=== PATIENT | male | born 1960 | race Caucasian/White ===

== ENCOUNTER 2018-01-29 06:50 | Day surgery (SDC) | payer MEDICARE ==
[2018-01-29] MEDS ORDERED: Ringers Lactate 1,000 ML IV ONE (07:28)
[2018-01-29] MEDS ORDERED: LIDOCAINE 4% TOP SOLUTION ONE (07:34)
[2018-01-29] MEDS ORDERED: Phenylephrine HCl 10 MG/ML 1 ML VIAL ONE (07:34)
[2018-01-29] MEDS ORDERED: GLYCOPYRROLATE 0.2 MG/ML SYR ONE (07:34)
[2018-01-29] MEDS ORDERED: LIDOCAINE 4% TOP SOLUTION TOP ONE (07:46)
[2018-01-29] MEDS ORDERED: MIDAZOLAM HCL 2 MG/2 ML INJ ONE ×2 (08:02→08:06)
[2018-01-29] MEDS ORDERED: PROPOFOL 200 MG/20 ML VIAL IV ONE (08:02)
[2018-01-29] MEDS ORDERED: LIDOCAINE 1% MPF 5 ML VIAL ONE (08:08)
--- NOTE | 2018-01-29 08:38 | P.OP ---
Date of Service: 01/29/18 (Bronchoscopy with right upper lobe transbronchial biopsies and a BAL) Findings and Operative Technique Patient is 57 years of age evaluated by me for a right upper lobe cavitary mass heavy smoker hence the reason for bronchoscopy Narrative report after obtaining informed consent from the patient he was premedicated by anesthesia Finding normal vocal cords normal trachea normal right and left-sided bronchial anatomy patient id copious amounts of mucus in his respiratory trach otherwise entirely normal bronchoscopy Multiple biopsies were obtained from the right upper lobe is indicated patient tolerated the procedure very well did not experience any hemodynamic problems biopsies sent for pathology and cytology
--- NOTE | 2018-01-29 10:05 | RAD REPORT ---
EXAM DESCRIPTION: RAD - Chest Single View - 01/29/2018 9:47 am CLINICAL HISTORY: Status post bronchoscopy Chest pain. COMPARISON: Chest Pa And Lat (2 Views) dated 01/20/2018; CHEST PA AND LAT 2 VIEW dated 08/03/2012; JUANITA ST PA AND LAT 2 VIEW dated 07/13/2012; CHEST SINGLE VIEW dated 09/15/2009 FINDINGS: Portable technique limits examination quality. Again noted is right apical cavitary lung lesion. No postprocedure pneumothorax is seen. The heart is normal in size. No displaced fractures.Aortic atherosclerosis. IMPRESSION: No postprocedure pneumothorax.
--- NOTE | 2018-01-29 10:33 | RAD REPORT ---
EXAM DESCRIPTION: RAD - FLUORO-GUIDE FOR BRONCH UPT1HR - 01/29/2018 8:52 am CLINICAL HISTORY: BRONCH- RIGHT LUNG BIOPSY COMPARISON: No comparisons FINDINGS: Fluoroscopic imaging is submitted from right-sided bronchoscopy procedure. Details of the procedure not available. Total fluoro time 3 minutes 22 seconds. Three spot images were obtained.
== END 2018-01-29 10:28 | disposition home health service (06) ==
LOC: OR 06:50
PROVIDERS: ATTEND Internal Medicine Sleep Medicine
PROC: 0B9C8ZX Drainage of Right Upper Lung Lobe, Via Natural or Artificial Opening Endoscopic, Diagnostic (ICD-10-PCS; 2018-01-29)
PROC: 0BBC8ZX Excision of Right Upper Lung Lobe, Via Natural or Artificial Opening Endoscopic, Diagnostic (ICD-10-PCS; principal; 2018-01-29 08:00)
DX: R91.8 Other nonspecific abnormal finding of lung field (principal); J44.9 Chronic obstructive pulmonary disease, unspecified; Z72.0 Tobacco use
CPT/HCPCS: 31624; 31628; 71045; 76000; 87015; 87102; 87116; 87206; 88108; 88305; J2250 ×2; J2370

== ENCOUNTER 2018-07-10 07:13 | Emergency (ER) | payer MEDICARE, SELFPAY ==
[2018-07-10] MEDS ORDERED: MORPHINE 4 MG/ML SYR ONE (07:44)
[2018-07-10] MEDS ORDERED: ONDANSETRON 4 MG/2 ML VIAL ONE (07:44)
[2018-07-10 08:02] LABS: Absolute Lymphocytes (CBC) 1.1 K/uL (0.7-4.9); Absolute Monocytes 0.4 K/uL (0.1-1.3); Absolute Neutrophil 7.6 K/uL (1.8-8.0); Basophils % 0.7 % (0-1.3); Eosinophils % 1.8 % (0-4.4); Hematocrit 33.4 % (39.6-49.0); Lymphocytes % 11.8 % (15.3-44.8); MPV 8.9 fL (7.6-11.3); Monocytes % 4.5 % (3.3-12.3); RBC Red Blood Cell Count 3.45 M/uL (4.33-5.43)
[2018-07-10 08:18] LABS: ALT/SGPT 71 U/L (12-78); AST/SGOT 30 U/L (15-37); Albumin 3.8 g/dL (3.4-5.0); Alkaline Phosphatase 93 U/L (45-117); BUN Blood Urea Nitrogen 27 mg/dL (7-18); Bicarbonate 27 mmol/L (21-32); Bilirubin Direct < 0.1 mg/dL (0-0.2); Bilirubin Total 0.2 mg/dL (0.2-1.0); Glucose Level 124 mg/dL (74-106); Lipase 104 U/L (73-393); Potassium 4.2 mmol/L (3.5-5.1); Protein, Total 7.4 g/dL (6.4-8.2); Sodium Level 141 mmol/L (136-145)
--- NOTE | 2018-07-10 08:34 | ER ---
Nurse's Notes [facility] Name: Dimitrios Payan Age: 57 yrs Sex: Male : 1960 Arrival Date: 07/10/2018 Time: 07:15 Bed 15 Private MD: Tom Ramirez E Diagnosis: Inguinal hernia Presentation: 07/10 07:25 Presenting complaint: Patient states: right inguinal hernia that "popped out" this iw morning. Transition of care: patient was not received from another setting of care. Onset of symptoms was July 10, 2018. Risk Assessment: Do you want to hurt yourself or someone else? Patient reports no desire to harm self or others. Initial Sepsis Screen: Does the patient meet any 2 criteria? No. Patient's initial sepsis screen is negative. Does the patient have a suspected source of infection? No. Patient's initial sepsis screen is negative. Care prior to arrival: None. 07:25 Method Of Arrival: Ambulatory iw 07:25 Acuity: SUSSY 3 iw Historical: - Allergies: 07:29 No Known Allergies; iw - Home Meds: 07:29 Suboxone sublingual sublingual [Active]; diclofenac oral oral [Active]; citalopram oral iw [Active]; - PMHx: 07:29 Anxiety; iw - PSHx: 07:29 None; iw - Immunization history:: Adult Immunizations not up to date. - Social history:: Smoking status: Patient uses tobacco products. - Ebola Screening: : Patient negative for fever greater than or equal to 101.5 degrees Fahrenheit, and additional compatible Ebola Virus Disease symptoms Patient denies exposure to infectious person Patient denies travel to an Ebola-affected area in the 21 days before illness onset No symptoms or risks identified at this time. Screenin:26 Abuse screen: Denies threats or abuse. Denies injuries from another. Nutritional bp screening: No deficits noted. Tuberculosis screening: No symptoms or risk factors identified. Fall Risk None identified. Assessment: 07:24 General: Appears in no apparent distress. uncomfortable, Behavior is cooperative, bp appropriate for age, anxious. Pain: Complains of pain in right inguinal area. Neuro: Level of Consciousness is awake, alert, obeys commands, Oriented to person, place, time, situation, Appropriate for age. Cardiovascular: No deficits noted. Respiratory: Airway is patent Respiratory effort is even, unlabored, Respiratory pattern is regular, symmetrical. GI: R INGUINAL HERNIA. : No signs and/or symptoms were reported regarding the genitourinary system. EENT: No deficits noted. Derm: No deficits noted. Musculoskeletal: Circulation, motion, and sensation intact. Range of motion: intact in all extremities. 08:52 Reassessment: PT DECLINING CT SCAN, PROVIDER AWARE. PT D/C HOME AMBULATORY WITH FAMILY, bp DX WITH INGUINAL HERNIA. Vital Signs: 07:27 BP 171 / 87; Pulse 84; Resp 16; Pulse Ox 99% on R/A; Weight 74.84 kg; Height 5 ft. 10 iw in. (177.80 cm); Pain 10/10; 07:48 BP 149 / 88; Pulse 78; Resp 14; Pulse Ox 99% ; bp 08:53 BP 130 / 73; Pulse 77; Resp 14; Pulse Ox 99% ; bp 07:27 Body Mass Index 23.67 (74.84 kg, 177.80 cm) iw ED Course: 07:15 Patient arrived in ED. mr 07:16 Tom Ramirez MD is Private Physician. mr 07:19 Nirmal Esteves MD is Attending Physician. ps1 07:23 Cail Onofre, RN is Primary Nurse. bp 07:26 Triage completed. iw 07:26 Patient has correct armband on for positive identification. Placed in gown. Bed in low bp position. Call light in reach. Side rails up X2. Adult w/ patient. 07:27 Arm band placed on. iw 07:33 Radiology exam delayed due to lab results not completed at this time. (BUN/Creatinine). vm2 07:45 Inserted saline lock: 18 gauge in right forearm, using aseptic technique. Blood bp collected. 08:33 Jorge L Elias MD is Referral Physician. ps1 08:52 No provider procedures requiring assistance completed. IV discontinued, intact, bp bleeding controlled, No redness/swelling at site. Pressure dressing applied. Administered Medications: 07:45 Drug: morphine 4 mg Route: IVP; Site: right forearm; bp 08:51 Follow up: Response: Pain is decreased bp 07:45 Drug: Zofran 4 mg Route: IVP; Site: right forearm; bp 08:51 Follow up: Response: No adverse reaction bp Outcome: 08:34 Discharge ordered by . ps1 08:53 Discharged to home ambulatory, with family. bp 08:53 Condition: stable 08:53 Discharge instructions given to patient, Instructed on discharge instructions, follow up and referral plans. Demonstrated understanding of instructions, follow-up care. 08:54 Patient left the ED. bp Signatures: Carmina Levine Irene, RN RN iw Lisandra Godfrey 2 Cali Onofre RN RN bp Nirmal Esteves MD MD ps1 Corrections: (The following items were deleted from the chart) 07:29 07:25 Acuity: SUSSY 4 grace edwards
--- NOTE | 2018-07-10 08:35 | EDPHYS ---
Physician Documentation [facility] Name: Dimitrios Payan Age: 57 yrs Sex: Male : 1960 Arrival Date: 07/10/2018 Time: 07:15 Bed 15 Private MD: Tom Ramirez E ED Physician Nirmal Esteves HPI: 07/10 07:21 This 57 yrs old Male presents to ER via Unassigned with complaints of Hernia. ps1 07:21 patient states that he has a hernia in the right groin. This morning about 230 feels ps1 like it is hard and non-reducible. Rates pain as moderate and worse with palpation. Thinks there may be gas in there that's causing pain. No remitting factors. . Historical: - Allergies: 07:29 No Known Allergies; iw - Home Meds: 07:29 Suboxone sublingual sublingual [Active]; diclofenac oral oral [Active]; citalopram oral iw [Active]; - PMHx: 07:29 Anxiety; iw - PSHx: 07:29 None; iw - Immunization history:: Adult Immunizations not up to date. - Social history:: Smoking status: Patient uses tobacco products. - Ebola Screening: : Patient negative for fever greater than or equal to 101.5 degrees Fahrenheit, and additional compatible Ebola Virus Disease symptoms Patient denies exposure to infectious person Patient denies travel to an Ebola-affected area in the 21 days before illness onset No symptoms or risks identified at this time. ROS: 07:21 Constitutional: Negative for fever, chills, and weight loss, Eyes: Negative for injury, ps1 pain, redness, and discharge, Cardiovascular: Negative for chest pain, palpitations, and edema, Respiratory: Negative for shortness of breath, cough, wheezing, and pleuritic chest pain, Back: Negative for injury and pain, MS/Extremity: Negative for injury and deformity, Skin: Negative for injury, rash, and discoloration, Neuro: Negative for headache, weakness, numbness, tingling, and seizure. 07:21 Abdomen/GI: Positive for hernia in right groin. Exam: 07:21 Constitutional: This is a well developed, well nourished patient who is awake, alert, ps1 and in no acute distress. Head/Face: Normocephalic, atraumatic. Eyes: Pupils equal round and reactive to light, extra-ocular motions intact. Lids and lashes normal. Conjunctiva and sclera are non-icteric and not injected. Chest/axilla: Normal chest wall appearance and motion. Nontender with no deformity. No lesions are appreciated. Cardiovascular: Regular rate and rhythm. No gallops, murmurs, or rubs. Normal PMI, no JVD. No pulse deficits. Respiratory: Lungs have equal breath sounds bilaterally, clear to auscultation and percussion. No rales, rhonchi or wheezes noted. No increased work of breathing, no retractions or nasal flaring. Back: No spinal tenderness. No costovertebral tenderness. Full range of motion. Skin: Warm, dry with normal turgor. Normal color with no rashes, no lesions, and no evidence of cellulitis. MS/ Extremity: Pulses equal, no cyanosis. Neurovascular intact. Full, normal range of motion. Neuro: Awake and alert, GCS 15, oriented to person, place, time, and situation. Cranial nerves II-XII grossly intact. Sensory grossly intact. 07:21 Abdomen/GI: Inspection: abdomen appears normal, Bowel sounds: normal, Palpation: moderate abdominal tenderness, Hernia: noted in the right inguinal area. Vital Signs: 07:27 BP 171 / 87; Pulse 84; Resp 16; Pulse Ox 99% on R/A; Weight 74.84 kg; Height 5 ft. 10 iw in. (177.80 cm); Pain 10/10; 07:48 BP 149 / 88; Pulse 78; Resp 14; Pulse Ox 99% ; bp 08:53 BP 130 / 73; Pulse 77; Resp 14; Pulse Ox 99% ; bp 07:27 Body Mass Index 23.67 (74.84 kg, 177.80 cm) iw MDM: 07:26 Patient medically screened. ps1 08:29 Data reviewed: vital signs, nurses notes. ED course: placed patient in head down ps1 position and hernia spontaneously reduced. . 08:32 ED course: patient refusing CT scan now that it is reduced. Patient stable for ps1 discharge. . 07/10 07:29 Order name: CBC with Diff; Complete Time: 08:34 ps1 07/10 07:29 Order name: Creatinine for Radiology; Complete Time: 08:34 ps1 07/10 07:29 Order name: Hepatic Function; Complete Time: 08:34 ps1 07/10 07:29 Order name: Lipase; Complete Time: 08:34 ps1 07/10 07:29 Order name: CMP; Complete Time: 08:34 ps1 07/10 07:29 Order name: IV Saline Lock; Complete Time: 07:46 ps1 07/10 07:29 Order name: Labs collected and sent; Complete Time: 07:46 ps1 Administered Medications: 07:45 Drug: morphine 4 mg Route: IVP; Site: right forearm; bp 08:51 Follow up: Response: Pain is decreased bp 07:45 Drug: Zofran 4 mg Route: IVP; Site: right forearm; bp 08:51 Follow up: Response: No adverse reaction bp Disposition: 07/10/18 08:34 Discharged to Home. Impression: Inguinal hernia. - Condition is Stable. - Discharge Instructions: Inguinal Hernia, Adult. - Medication Reconciliation Form, Thank You Letter, Antibiotic Education, Prescription Opioid Use form. - Follow up: Jorge L Elias MD; When: As needed; Reason: Further diagnostic work-up, Recheck today's complaints, Re-evaluation by your physician. Follow up: Emergency Department; When: As needed; Reason: Worsening of condition. - Problem is an acute exacerbation. - Symptoms have improved. Signatures: Dispatcher [employer] [facility] Vero Red RN RN iw Cali Onofre RN RN Nirmal Orellana MD MD ps1 Corrections: (The following items were deleted from the chart) 08:53 07:30 Abdomen Pelvis W Con+CT.RAD.BRZ ordered. [facility] EDCT 08:54 08:34 07/10/2018 08:34 Discharged to Home. Impression: Inguinal hernia. Condition is bp Stable. Forms are Medication Reconciliation Form, Thank You Letter, Antibiotic Education, Prescription Opioid Use. Follow up: Dr. Jorge L Elias; When: As needed; Reason: Further diagnostic work-up, Recheck today's complaints, Re-evaluation by your physician. Follow up: Emergency Department; When: As needed; Reason: Worsening of condition. Problem is an acute exacerbation. Symptoms have improved. ps1
== END 2018-07-10 08:54 | disposition home or self-care (01) ==
LOC: ER 07:13
DX: K40.90 Unilateral inguinal hernia, without obstruction or gangrene, not specified as recurrent (principal); F41.9 Anxiety disorder, unspecified; Z79.899 Other long term (current) drug therapy; Z72.0 Tobacco use
CPT/HCPCS: 36415; 80053; 80076; 83690; 85025; 96374; 96375; 99283; J2405

== ENCOUNTER 2018-07-19 08:13 | Day surgery (SDC) | payer MEDICARE ==
[2018-07-19] MEDS ORDERED: Ringers Lactate 1,000 ML IV ONE (08:50)
[2018-07-19] MEDS ORDERED: CEFAZOLIN/SWI 1gm 1 GM/10 ML SYR ONE (08:50)
[2018-07-19] MEDS ORDERED: MIDAZOLAM HCL 2 MG/2 ML INJ ONE (08:51)
[2018-07-19] MEDS ORDERED: DEXAMETHASONE 10 MG/ML VIAL ONE (08:51)
[2018-07-19] MEDS ORDERED: PROPOFOL 200 MG/20 ML VIAL IV ONE (08:51)
[2018-07-19] MEDS ORDERED: ROCURONIUM 50 MG/5 ML VIAL IV ONE (08:52)
[2018-07-19] MEDS ORDERED: LIDOCAINE 2% MPF 5 ML VIAL ONE (08:52)
[2018-07-19] MEDS ORDERED: FENTANYL CITR 250 MCG/5 ML ONE (08:52)
[2018-07-19] MEDS ORDERED: BUPIVACAINE 0.5% PF 10 ML VIAL ONE (09:40)
[2018-07-19] MEDS ORDERED: KETOROLAC 30 MG/ML INJ ONE (10:45)
[2018-07-19] MEDS: HYDROMORPHONE HCL 2 MG/ML inj ONE ×4 (10:56→11:11)
[2018-07-19] MEDS: MEPERIDINE HCL 50 MG/ML AMP ONE ×2 (11:16→11:21)
[2018-07-19] MEDS: HYDROMORPHONE HCL 1 MG/ML INJ ONE ×2 (11:28→11:36)
[2018-07-19] MEDS ORDERED: HYDROCODONE/APAP 7.5/325 MG TAB ONE (12:26)
--- NOTE | 2018-07-19 21:44 | OP ---
Date of Procedure: 07/19/2018 Surgeon: Jorge L Elias MD Car Customizer: JUANCHO Mcdaniel. Preoperative Diagnosis: Bilateral inguinal hernia. Postoperative Diagnosis: Bilateral inguinal hernia. Procedure: Repair of bilateral inguinal hernia. Estimated Blood Loss: Minimal. Specimen: None. Findings: Bilateral direct inguinal hernia. Anesthesia: General. Complications: None. Disposition: The patient tolerated the procedure in stable condition and was taken to recovery in go od general condition. Description Of Procedure: The patient was brought to the OR and placed in supine position. General anesthesia was begun. The patient was prepped and draped in the usual sterile fashion. Marcaine 0.5 % was infiltrated in the right groin in a field block fashion. A 15-blade was used to make a 4-cm ob lique incision between the anterior iliac superior spine and the pubic tubercle. Subcutaneous tissue was divided. Tavares fascia was identified and divided. Aponeurosis was identified and mobilized in feriorly to expose the shelving edge, and then the aponeurosis was opened through the external ring. Ilioinguinal nerve was identified and retracted out of the field of dissection. Cord was mobilized and skeletonized. No indirect sac was present. Medial to that, there was a large direct defect. Th is was reapproximated starting at the pubic tubercle, to create a new internal ring by 2-0 Prolene by joining the shelving edge to the conjoined tendon. Then, Marlex mesh plug was placed in the interna l ring and secured with the VersaTack stapler. Onlay mesh was placed on the inguinal floor, secured medially to the pubic tubercle, inferiorly to the shelving edge, superiorly to the conjoined tendon, laterally to each other, and then cord structures. Ilioinguinal nerve was placed back in anatomical location. A 2-0 Prolene was used to close the aponeurosis, 3-0 chromic used to close the Tavares fasc ia, and henri used to close the skin. Then, sterile dressing was applied. On the other side, exac tly same operation occurred with the exact same findings. The defect was not as large on the left si de as was on the right side. Otherwise, the findings of repair were exactly the same. Subsequently, after both wounds were closed, the patient was awakened and taken to Recovery in good general condit ion. Discharge Note: The patient will go to Day Surgery and home when stable. Disposition: Home. Condition: Stable. Discharge Instructions: Resume home medications and diet. Activity as tolerated. No heavy lifting. Remove outer dressing in a.m. Shower. Keep wound clean and dry. Follow up in my office 1 week. Call for appointment. Tylenol No. 3, one tablet p.o. q.4 hours p.r.n. pain. Ice pack and scrotal teresa pport. /MODL Voice ID: [id number] Report ID: [id number]
== END 2018-07-19 12:40 | disposition home or self-care (01) ==
LOC: OR 08:13
PROVIDERS: ATTEND Surgery
PROC: 0YUA0JZ Supplement Bilateral Inguinal Region with Synthetic Substitute, Open Approach (ICD-10-PCS; principal; 2018-07-19 10:00)
DX: K40.20 Bilateral inguinal hernia, without obstruction or gangrene, not specified as recurrent (principal); J44.9 Chronic obstructive pulmonary disease, unspecified; F43.22 Adjustment disorder with anxiety; F17.210 Nicotine dependence, cigarettes, uncomplicated; Z79.51 Long term (current) use of inhaled steroids; Z79.899 Other long term (current) drug therapy
CPT/HCPCS: 49505; J0690; J1100; J1170 ×2; J2175; J2250; J2704; J3010

== ENCOUNTER 2019-05-19 09:50 | Emergency (ER) | payer MEDICARE, SELFPAY ==
--- NOTE | 2019-05-19 12:06 | ER ---
Nurse's Notes [facility] Name: Dimitrios Payan Age: 58 yrs Sex: Male : 1960 Arrival Date: 05/19/2019 Time: 09:52 Bed Waiting Private MD: Tom Yuen E Diagnosis: Presentation: 05/19 10:23 Presenting complaint: Patient states: i have this big abscess on my LEFT shoulder and tw2 its infected, i feel like i have a fever, i went to dr. yuen office and they put me on a real strong antibiotics, sulfamethoxasole, i just started em yesterday but i dont feel any better so they told me to come here. Presenting complaint: Patient states: they said i might need iv antibiotics. Transition of care: patient was not received from another setting of care. Onset of symptoms was May 19, 2019. Risk Assessment: Do you want to hurt yourself or someone else? Patient reports no desire to harm self or others. Initial Sepsis Screen: Does the patient meet any 2 criteria? No. Patient's initial sepsis screen is negative. Does the patient have a suspected source of infection? No. Patient's initial sepsis screen is negative. Care prior to arrival: None. 10:23 Method Of Arrival: Ambulatory tw2 10:23 Acuity: SUSSY 3 tw2 10:25 Presenting complaint: Patient states: i have been squeezing on it for 4 days and this tw2 last time i squeezed on it i knew i messed up. 12:01 Note pts name called 3 times from [facility] no answer at this time, loan secretary tells me he tw2 has been going to smoke outside but was not anywhere near entrance at this time. 12:04 Note pt called manager unit at this time states "i got tired of waiting, take me off tw2 that damn list". Triage Assessment: 10:25 General: Appears in no apparent distress. well groomed, Behavior is calm, cooperative, tw2 appropriate for age. Pain: Complains of pain in left shoulder. Historical: - Allergies: 10:28 No Known Allergies; tw2 - Home Meds: 10:28 Suboxone sublingual [Active]; diclofenac Oral [Active]; Flomax 0.4 mg Oral cp24 1 cap tw2 once daily [Active]; - PMHx: 10:28 Anxiety; tw2 - PSHx: 10:28 None; tw2 - Immunization history:: Adult Immunizations Last tetanus immunization: unknown. - Social history:: Smoking status: Patient uses tobacco products, vape with nicotine 18 mcg. - Ebola Screening: : Patient denies travel to an Ebola-affected area in the 21 days before illness onset. Screenin:11 Abuse screen: Denies threats or abuse. Nutritional screening: No deficits noted. tw2 Tuberculosis screening: No symptoms or risk factors identified. Fall Risk None identified. Vital Signs: 10:26 BP 123 / 70; Pulse 87; Resp 17; Temp 98.1(TE); Pulse Ox 100% on R/A; Weight 76.2 kg; tw2 Height 5 ft. 10 in. (177.80 cm) (R); Pain 5/10; 10:26 Body Mass Index 24.11 (76.20 kg, 177.80 cm) tw2 ED Course: 09:52 Patient arrived in ED. rg4 09:52 Tom Yuen MD is Private Physician. rg4 10:25 Triage completed. tw2 10:25 Arm band placed on. tw2 Administered Medications: No medications were administered Outcome: 12:05 Patient left the ED. tw2 Signatures: Mouna Agrawal RN RN tw2 Karen Millan rg4
[2019-05-19 12:19] VITALS: BP 123/70; TEMP 98.1; O2SAT 100
== END 2019-05-19 12:05 | disposition left against medical advice (07) ==
LOC: ER 09:50
DX: Z02.9 Encounter for administrative examinations, unspecified (principal); Z53.21 Procedure and treatment not carried out due to patient leaving prior to being seen by health care provider
CPT/HCPCS: 99281

== ENCOUNTER 2019-12-21 02:00 | Inpatient (IN) | payer MEDICARE, SELFPAY ==
[2019-12-21] MEDS ORDERED: ONDANSETRON 4 MG/2 ML VIAL ONE ×3 (02:20→10:24)
[2019-12-21] MEDS ORDERED: MORPHINE 4 MG/ML SYR ONE ×2 (02:20→08:58)
[2019-12-21] MEDS ORDERED: NA CHLORIDE 0.9% 1,000 ML ONE (02:20)
[2019-12-21] MEDS ORDERED: HYDROMORPHONE HCL 1 MG/ML INJ ONE ×5 (02:40→10:38)
[2019-12-21 02:44] LABS: Absolute Lymphocytes (CBC) 2.6 K/uL (0.7-4.9); Basophils % 0.3 % (0-1.3); Hematocrit 31.7 % (39.6-49.0); Lymphocytes % 21.6 % (15.3-44.8); MPV 8.7 fL (7.6-11.3); RBC Red Blood Cell Count 3.45 M/uL (4.33-5.43)
[2019-12-21 02:56] LABS: ALT/SGPT 33 U/L (12-78); AST/SGOT 20 U/L (15-37); Albumin 3.9 g/dL (3.4-5.0); Alkaline Phosphatase 103 U/L (45-117); BUN Blood Urea Nitrogen 22 mg/dL (7-18); Bicarbonate 26 mmol/L (21-32); Bilirubin Direct < 0.1 mg/dL (0-0.2); Bilirubin Total 0.3 mg/dL (0.2-1.0); Glucose Level 102 mg/dL (74-106); Lipase 110 U/L (73-393); Potassium 3.8 mmol/L (3.5-5.1); Protein, Total 8.3 g/dL (6.4-8.2); Sodium Level 141 mmol/L (136-145)
--- NOTE | 2019-12-21 03:46 | ER ---
Nurse's Notes [facility] Name: Dimitrios Payan Age: 59 yrs Sex: Male : 1960 Arrival Date: 12/21/2019 Time: 02:01 Bed 5 Private MD: Diagnosis: Acute Appendicitis Presentation: 12/20 02:08 Chief complaint: Patient states: RLQ pain that began suddenly; states some nausea. lp1 Coronavirus screen: Patient denies a cough. Patient denies shortness of breath or difficulty breathing. Patient denies measured and/or subjective temperature greater than 100.4F prior to today's visit. Patient denies travel on a cruise ship or to a country the [facility] currently lists as an affected area. Patient denies contact with known and/or suspected case of COVID-19. Ebola Screen: No symptoms or risks identified at this time. Initial Sepsis Screen: Does the patient meet any 2 criteria? No. Patient's initial sepsis screen is negative. Does the patient have a suspected source of infection? No. Patient's initial sepsis screen is negative. Risk Assessment: Do you want to hurt yourself or someone else? Patient reports no desire to harm self or others. Onset of symptoms was December 21, 2019. 02:08 Method Of Arrival: Wheelchair lp1 02:08 Acuity: SUSSY 3 lp1 Historical: - Allergies: 02:10 No Known Allergies; lp1 - Home Meds: 02:10 Suboxone sublingual [Active]; lp1 - PMHx: 02:10 Anxiety; lp1 - PSHx: 02:10 Hernia repair; lp1 - Immunization history:: Adult Immunizations up to date. - Social history:: Smoking status: Reported history of juuling and/or vaping. Screenin:10 Abuse screen: Denies threats or abuse. Denies injuries from another. Nutritional lp1 screening: No deficits noted. Tuberculosis screening: No symptoms or risk factors identified. 02:23 Fall Risk IV access (20 points). mg2 Assessment: 02:21 General: Appears uncomfortable, Behavior is anxious, fussy, restless. mg2 02:22 Pain: Complains of pain in abdomen. Neuro: Level of Consciousness is awake, alert, mg2 obeys commands, Oriented to person, place, time, situation. Cardiovascular: Capillary refill < 3 seconds Patient's skin is warm and dry. Respiratory: Airway is patent Respiratory effort is even, unlabored, Respiratory pattern is regular, symmetrical. GI: Reports lower abdominal pain. : Reports pain in right LQ. EENT: No deficits noted. Derm: Skin is intact, is healthy with good turgor, Skin is pink, warm \T\ dry. normal. Musculoskeletal: Circulation, motion, and sensation intact. Capillary refill < 3 seconds. 03:30 Reassessment: patient still in pain, provider ordered pain medicine. mg2 04:04 Reassessment: patient informed about the plan for hospitalization. mg2 Vital Signs: 02:08 BP 172 / 92; Pulse 91; Resp 20; Temp 98.7(O); Pulse Ox 100% on R/A; Weight 70.31 kg lp1 (R); Height 5 ft. 10 in. (177.80 cm); Pain 10/10; 04:05 BP 150 / 80; Pulse 105; Resp 18; Pulse Ox 100% on R/A; mg2 05:00 BP 145 / 95; Pulse 109; Resp 18; Pulse Ox 100% on R/A; mg2 05:52 BP 114 / 71; Pulse 108; Resp 18; Temp 98.8; Pulse Ox 100% on R/A; mg2 02:08 Body Mass Index 22.24 (70.31 kg, 177.80 cm) lp1 ED Course: 02:01 Patient arrived in ED. ds1 02:01 Ramses Thornton, MANISH is Primary Nurse. rv 02:05 Luciano Yarbrough MD is Attending Physician. mh7 02:10 Triage completed. lp1 02:10 Arm band placed on. lp1 02:11 Patient has correct armband on for positive identification. lp1 02:18 Missed attempt(s): 20 gauge in right antecubital area. rv 02:22 No provider procedures requiring assistance completed. Inserted saline lock: 20 gauge mg2 in left forearm, using aseptic technique. Blood collected. 03:18 CT Stone Protocol In Process Unspecified. EDMS 03:44 Amos Cohen MD is Hospitalizing Provider. mh7 03:57 Pt. sister Maria Esther Elise . ar5 04:05 Patient admitted, IV remains in place. mg2 06:21 covid swab sent to the lab. mg2 Administered Medications: 02:17 Drug: morphine 4 mg {Note: given IM, right deltoid; Rass 2.} Route: IVP; Site: Other; rv 03:49 Follow up: Response: No adverse reaction; RASS: Alert and Calm (0) mg2 02:20 Drug: NS 0.9% 1000 ml Route: IV; Rate: 1000 ml; Site: left forearm; mg2 03:49 Follow up: Response: No adverse reaction; IV Status: Completed infusion; IV Intake: mg2 1000ml 02:20 Drug: Zofran (Ondansetron) 4 mg Route: IVP; Site: left forearm; mg2 03:50 Follow up: Response: No adverse reaction mg2 02:35 Drug: Dilaudid 1 mg {Note: RASS 1.} Route: IVP; Site: left wrist; lp1 04:02 Follow up: Response: No adverse reaction mg2 03:25 Drug: Dilaudid 1 mg Route: IVP; Site: left forearm; mg2 04:03 Follow up: Response: No adverse reaction mg2 03:49 Drug: LevaQUIN 750 mg Volume: 150 ml; Route: IVPB; Infused Over: 90 mins; Site: left mg2 forearm; 05:30 Follow up: Response: No adverse reaction; IV Status: Completed infusion mg2 04:28 Drug: Demerol 25 mg Route: IVP; Site: left forearm; mg2 05:30 Follow up: Response: No adverse reaction; RASS: Alert and Calm (0) mg2 Intake: 03:49 IV: 1000ml; Total: 1000ml. mg2 Outcome: 03:45 Decision to Hospitalize by Provider. mh7 07:30 Admitted to ER Hold. Please see [facility] for further documentation. aa5 07:30 Condition: stable aa5 07:30 Instructed on the need for admit, Demonstrated understanding of instructions. 08:10 Patient left the ED. aa5 Signatures: Dispatcher [facility] RmTracy fox ds1 Brigida Chaudhary RN RN aa5 Caroline Mejias RN RN lp1 Dwight Buenrostro RN RN mg2 Ramses Thornton RN RN Yasmin Gallo ar5 Luciano Yarbrough MD MD 7 Corrections: (The following items were deleted from the chart) 02:23 02:21 General: Appears uncomfortable, Behavior is mg2 mg2 08:39 08:37 Patient left the ED. aa5 aa5
--- NOTE | 2019-12-21 03:46 | EDPHYS ---
Physician Documentation [facility] Name: Dimitrios Payan Age: 59 yrs Sex: Male : 1960 Arrival Date: 12/21/2019 Time: 02:01 Bed 5 Private MD: ED Physician Luciano Yarbrough HPI: 12/20 02:32 This 59 yrs old Male presents to ER via Wheelchair with complaints of R Side mh7 Pain. 02:32 The patient presents with abdominal pain right lower quadrant. mh7 02:32 Onset: The symptoms/episode began/occurred just prior to arrival, today. The symptoms mh7 do not radiate. Associated signs and symptoms: Pertinent positives: nausea, Pertinent negatives: anorexia, blood in stools, chest pain, constipation, diarrhea, dysuria, fever, headache, hematuria, palpitations, shortness of breath, testicular pain, vomiting, vomiting blood. The symptoms are described as intermittent, vague, waxing/waning. Modifying factors: The symptoms are alleviated by nothing, the symptoms are aggravated by nothing. Severity of pain: At its worst the pain was severe just prior to arrival, in the emergency department the pain is unchanged. Historical: - Allergies: 02:10 No Known Allergies; lp1 - Home Meds: 02:10 Suboxone sublingual [Active]; lp1 - PMHx: 02:10 Anxiety; lp1 - PSHx: 02:10 Hernia repair; lp1 - Immunization history:: Adult Immunizations up to date. - Social history:: Smoking status: Reported history of juuling and/or vaping. ROS: 02:32 Constitutional: Negative for fever, chills, and weight loss, Eyes: Negative for injury, mh7 pain, redness, and discharge, ENT: Negative for injury, pain, and discharge, Neck: Negative for injury, pain, and swelling, Cardiovascular: Negative for chest pain, palpitations, and edema, Respiratory: Negative for shortness of breath, cough, wheezing, and pleuritic chest pain, Back: Negative for injury and pain, : Negative for injury, bleeding, discharge, and swelling, MS/Extremity: Negative for injury and deformity, Skin: Negative for injury, rash, and discoloration, Neuro: Negative for headache, weakness, numbness, tingling, and seizure, Psych: Negative for depression, anxiety, suicide ideation, homicidal ideation, and hallucinations, Allergy/Immunology: Negative for hives, rash, and allergies, Endocrine: Negative for neck swelling, polydipsia, polyuria, polyphagia, and marked weight changes, Hematologic/Lymphatic: Negative for swollen nodes, abnormal bleeding, and unusual bruising. Exam: 02:32 Head/Face: Normocephalic, atraumatic. Neck: Trachea midline, no thyromegaly or masses mh7 palpated, and no cervical lymphadenopathy. Supple, full range of motion without nuchal rigidity, or vertebral point tenderness. No Meningismus. Chest/axilla: Normal chest wall appearance and motion. Nontender with no deformity. No lesions are appreciated. Cardiovascular: Regular rate and rhythm with a normal S1 and S2. No gallops, murmurs, or rubs. Normal PMI, no JVD. No pulse deficits. Respiratory: Lungs have equal breath sounds bilaterally, clear to auscultation and percussion. No rales, rhonchi or wheezes noted. No increased work of breathing, no retractions or nasal flaring. 02:32 Back: No spinal tenderness. No costovertebral tenderness. Full range of motion. Skin: Warm, dry with normal turgor. Normal color with no rashes, no lesions, and no evidence of cellulitis. MS/ Extremity: Pulses equal, no cyanosis. Neurovascular intact. Full, normal range of motion. Neuro: Awake and alert, GCS 15, oriented to person, place, time, and situation. Cranial nerves II-XII grossly intact. Motor strength 5/5 in all extremities. Sensory grossly intact. Cerebellar exam normal. Normal gait. Psych: Awake, alert, with orientation to person, place and time. Behavior, mood, and affect are within normal limits. 02:32 Constitutional: The patient appears alert, awake, anxious, in obvious pain. 02:32 Abdomen/GI: Inspection: abdomen appears normal, Bowel sounds: normal, in all quadrants, Palpation: moderate abdominal tenderness, in the right lower quadrant, Rectal exam: the exam is deferred, because of patient request, Indicators: McBurney's point is not tender, Davison's sign is negative, Rovsing's sign is negative, Obturator sign is negative, Psoas sign is negative, Liver: no appreciated palpable abnormalities, Hernia: not appreciated. Vital Signs: 02:08 BP 172 / 92; Pulse 91; Resp 20; Temp 98.7(O); Pulse Ox 100% on R/A; Weight 70.31 kg lp1 (R); Height 5 ft. 10 in. (177.80 cm); Pain 10/10; 04:05 BP 150 / 80; Pulse 105; Resp 18; Pulse Ox 100% on R/A; mg2 05:00 BP 145 / 95; Pulse 109; Resp 18; Pulse Ox 100% on R/A; mg2 05:52 BP 114 / 71; Pulse 108; Resp 18; Temp 98.8; Pulse Ox 100% on R/A; mg2 02:08 Body Mass Index 22.24 (70.31 kg, 177.80 cm) lp1 MDM: 02:11 Patient medically screened. mh7 03:42 Differential diagnosis: AAA, appendicitis, bowel obstruction, non-specific abd pain, mh7 Ureterolithiasis, urinary tract infection. Data reviewed: vital signs, nurses notes, old medical records, lab test result(s), CBC, electrolytes, radiologic studies, CT scan. Data interpreted: Pulse oximetry: on room air is 100 %. Interpretation: normal. Counseling: I had a detailed discussion with the patient and/or guardian regarding: the historical points, exam findings, and any diagnostic results supporting the discharge/admit diagnosis, the presence of at least one elevated blood pressure reading (>120/80) during this emergency department visit, lab results, radiology results, the need for further work-up and treatment in the hospital. Response to treatment: the patient's symptoms have markedly improved after treatment. Physician consultation: Amos Cohen MD regarding patient's condition, and will see patient in inpatient room, later today. 12/20 02:07 Order name: Basic Metabolic Panel; Complete Time: 03:02 mg2 12/20 02:07 Order name: CBC with Diff; Complete Time: 03:15 mg2 12/20 02:07 Order name: Hepatic Function; Complete Time: 03:02 mg2 12/20 02:07 Order name: Lipase; Complete Time: 03:02 mg2 12/20 03:50 Order name: Basic Metabolic Panel EDMS 12/20 03:50 Order name: Basic Metabolic Panel EDMS 12/20 03:50 Order name: CBC with Automated Diff EDMS 12/20 03:50 Order name: CBC with Automated Diff EDMS 12/20 03:50 Order name: Lipase EDNY 12/20 03:50 Order name: Lipase EDNY 12/20 03:50 Order name: Liver (Hepatic) Function [facility] 12/20 03:50 Order name: Liver (Hepatic) Function [facility] 12/20 06:10 Order name: COVID-19 [facility] [place] 12/20 07:38 Order name: Urine Dipstick--Ancillary (enter results) 12/20 02:07 Order name: IV Saline Lock; Complete Time: 02:18 [facility] [place] 12/20 02:07 Order name: Labs collected and sent; Complete Time: 02:18 [facility] [place] 12/20 02:11 Order name: Urine Dipstick-Ancillary (obtain specimen); Complete Time: 07:53 [facility] 12/20 02:21 Order name: CT Stone Protocol [facility] [place] 12/20 03:50 Order name: NPO EDNY Administered Medications: 02:17 Drug: morphine 4 mg {Note: given IM, right deltoid; Rass 2.} Route: IVP; Site: Other; rv 03:49 Follow up: Response: No adverse reaction; RASS: Alert and Calm (0) mg2 02:20 Drug: NS 0.9% 1000 ml Route: IV; Rate: 1000 ml; Site: left forearm; mg2 03:49 Follow up: Response: No adverse reaction; IV Status: Completed infusion; IV Intake: mg2 1000ml 02:20 Drug: Zofran (Ondansetron) 4 mg Route: IVP; Site: left forearm; mg2 03:50 Follow up: Response: No adverse reaction mg2 02:35 Drug: Dilaudid 1 mg {Note: RASS 1.} Route: IVP; Site: left wrist; lp1 04:02 Follow up: Response: No adverse reaction mg2 03:25 Drug: Dilaudid 1 mg Route: IVP; Site: left forearm; mg2 04:03 Follow up: Response: No adverse reaction mg2 03:49 Drug: LevaQUIN 750 mg Volume: 150 ml; Route: IVPB; Infused Over: 90 mins; Site: left mg2 forearm; 05:30 Follow up: Response: No adverse reaction; IV Status: Completed infusion mg2 04:28 Drug: Demerol 25 mg Route: IVP; Site: left forearm; mg2 05:30 Follow up: Response: No adverse reaction; RASS: Alert and Calm (0) mg2 Disposition: 12/21/19 03:45 Hospitalization ordered by Amos Cohen for Inpatient Admission. Preliminary diagnosis is Acute Appendicitis. - Bed requested for [facility] ER HOLD. - Status is Inpatient Admission. aa5 - Condition is Stable. - Problem is new. - Symptoms have improved. Signatures: Dispatcher [employer] EDNY Brigida Chaudhary RN RN aa5 Caroline Mejias, RN RN lp1 Mariposa Millan RN RN cg Dwight Buenrostro, MANISH RN mg2 Ramses Thornton RN RN Luciano Yarbrough MD MD 7 Corrections: (The following items were deleted from the chart) 02:38 02:16 Abdomen Pelvis Wo Con+CT.RAD.BRZ ordered. [facility] EDNY 05:54 03:45 Hospitalization Ordered by Amos Cohen MD for Inpatient Admission. Preliminary cg diagnosis is Acute Appendicitis. Bed requested for Telemetry/MedSurg (Inpatient). Status is Inpatient Admission. Condition is Stable. Problem is new. Symptoms have improved. 7 08:37 05:54 12/21/2019 03:45 Hospitalization Ordered by Amos Cohen MD for Inpatient aa5 Admission. Preliminary diagnosis is Acute Appendicitis. Bed requested for [facility] ER HOLD. Status is Inpatient Admission. Condition is Stable. Problem is new. Symptoms have improved. cg
[2019-12-21] MEDS ORDERED: ONDANSETRON 4 MG/2 ML VIAL IV PRN ×2 (03:48→10:23)
[2019-12-21] MEDS ORDERED: HYDROMORPHONE HCL 1 MG/ML INJ IV PRN (03:48)
[2019-12-21] MEDS ORDERED: Levofloxacin 750mg IV 750 MG/150 ML BAG IV ONE (03:56)
[2019-12-21] MEDS ORDERED: D5 0.45 NS 1,000 ML IV SCH (04:00)
[2019-12-21] MEDS ORDERED: Levofloxacin 750mg IV 750 MG/150 ML BAG IV SCH (04:00)
[2019-12-21] MEDS ORDERED: D5 0.45 NS 1,000 ML IV ONE (04:21)
[2019-12-21] MEDS ORDERED: MEPERIDINE HCL 50 MG/ML ONE (04:34)
[2019-12-21 06:37] VITALS: BMI 22.2
--- NOTE | 2019-12-21 08:46 | P.BOP ---
Preoperative diagnosis: acute appendicitis, AAA Postoperative diagnosis: acute suppurative appendicitis, peritonitis Primary procedure: Laparoscopic appendectomy suppurative Builder'S Labourer: CATHERINE OLSON (CANVAS CUTTER MACHINE) Estimated blood loss: <10cc Specimen: bebo and cultures Findings: acute suppurative appendicitis Anesthesia: General Complications: None Drain(s): CARMELINA drain Transferred to: Recovery Room Condition: Good
[2019-12-21] MEDS ORDERED: HYDROCODONE/APAP 5/325 MG TAB PO PRN (08:47)
[2019-12-21] MEDS ORDERED: Ringers Lactate 1,000 ML IV ONE ×2 (08:49→10:00)
[2019-12-21] MEDS ORDERED: dexAMETHasone 10 MG/ML VIAL ONE (09:06)
[2019-12-21] MEDS ORDERED: LIDOCAINE 2% MPF 5 ML VIAL ONE (09:06)
[2019-12-21] MEDS ORDERED: MIDAZOLAM HCL 2 MG/2 ML INJ ONE (09:06)
[2019-12-21] MEDS ORDERED: propofoL 200 MG/20 ML VIAL IV ONE (09:06)
[2019-12-21] MEDS ORDERED: FENTANYL CITR 250 MCG/5 ML ONE (09:07)
[2019-12-21] MEDS ORDERED: ROCURONIUM 50 MG/5 ML VIAL IV ONE (09:08)
[2019-12-21] MEDS ORDERED: SUCCINYLCHOLINE 20 MG/ML (10 ML) IV ONE (09:14)
[2019-12-21 09:38] LABS: Urine Blood NEGATIVE (NEG); Urine Glucose NEGATIVE (NEG); Urine Protein NEGATIVE (NEG); Urine Specific Gravity 1.025 (1.005-1.030); Urine pH 5.5 (5.0-7.0)
--- NOTE | 2019-12-21 09:45 | HP ---
Date of Admission: 12/21/2019 Reason For Admission: Acute appendicitis. History Of Present Illness: This is a case of a 59-year-old patient who comes with abdominal pain si nce earlier this morning and midnight. He stated he was doing okay. Suddenly this pain started in t he right lower quadrant. He had to come to the ER this morning, diagnosed with acute appendicitis. He stated nausea, no vomiting. No dysuria, hematuria, hematochezia, melena. No recent traveling out of the country. No family member sick at home. Review of Systems: No shortness of breath. No chest pain. No fever. Ten points otherwise unremarkable. Allergies: NONE. Medications: Include Suboxone sublingual. Past Medical History: Anxiety. Past Surgical History: Bilateral hernia repair with mesh. No previous colonoscopy. The patient was advised the importance of colonoscopy since he is supposed to have it done about 11 years ago. Social History: The patient states history of Juuling. Physical Examination: General: The patient is awake, alert. HEENT: Pupils are equal and reactive, anicteric. Neck: Supple. Chest: Clear. Abdomen: Right lower quadrant tenderness with Rovsing signs and psoas sign positive. Rectal/Genitalia: Deferred. Extremities: Good capillary refill. Pulses, popliteal and femoral still present. Dorsalis pedis di minished but present. Neurologic: Cranial nerves 2 through 12 grossly within normal limits. Laboratory Data: WBC count is 12.1, hemoglobin of 10.8, and potassium 3.8. Imaging: CAT scan of the abdomen and pelvis interpreted by radiologist as acute appendicitis. The p atient also has a 5 cm aneurysm. Assessment: Acute appendicitis. Plan: 1.Emergent laparoscopic, possible open appendectomy with benefits, alternatives, and risks including , but not limited to infection, bleeding, damage to adjacent structures, anesthesia complication, neg ative appendix, RI, even . He also understands this may not relieve the symptoms. He might nee d more than one surgical intervention. 2.He was counseled about the smoking cessation. 3.It is important that he follow with a colonoscopy in the next few weeks since he is due for that a nd we cannot rule out appendicitis in relationship with any neoplasm in the colon. 4.The patient has a large aneurysm. He must see a vascular surgeon eventually to have evaluation an d the plan. He was fully explained the importance of an evaluation of that not only for severe perip heral vascular disease complication, but also the chance of rupture. Right now we have emergency wit h acute appendicitis. This has to be taken care of at this moment. He understood. DEBORAH Voice ID: [id number]
[2019-12-21] MEDS ORDERED: GLYCOPYRROLATE 0.2 MG/ML SYR ONE ×2 (09:52)
[2019-12-21] MEDS ORDERED: NEOSTIGMINE 1 MG/ML -5 ML ONE (09:53)
[2019-12-21] MEDS ORDERED: KETOROLAC 30 MG/ML INJ ONE (10:03)
[2019-12-21] MEDS ORDERED: LABETALOL 20 MG/4ML SYRINGE IV ONE (10:08)
[2019-12-21] MEDS ORDERED: MORPHINE 2 MG/ML SYR IV PRN (10:10)
[2019-12-21] MEDS ORDERED: MORPHINE 4 MG/ML SYR IV PRN (10:12)
[2019-12-21] MEDS: MEPERIDINE HCL 25 MG/ML SYR ONE ×2 (10:18→10:26)
[2019-12-21] MEDS: HYDROMORPHONE HCL 1 MG/ML INJ ONE ×2 (10:18→10:26)
[2019-12-21] MEDS ORDERED: PROMETHAZINE INJ 25 MG/ML AMP ONE (10:24)
--- NOTE | 2019-12-21 10:42 | RAD REPORT ---
EXAM DESCRIPTION: CT - Stone Protocol - 12/21/2019 3:55 am ADDENDUM #1 THIS REPORT CONTAINS FINDINGS THAT MAY BE CRITICAL TO PATIENT CARE: The findings were verbally discu ssed via telephone conference with Dr. Luciano Yarbrough by Dr. Foster Orosco on 12/21/2019 3:36 AM CD T .The results were acknowledged and understood. Electronically signed by: Maricruz Orosco MD 12/21/2019 3:37 AM CDT End of Addendum EXAM DESCRIPTION: CT Abdomen and Pelvis Without Intravenous Contrast CLINICAL HISTORY: The patient is 59 years old and is Male; ABD PAIN TECHNIQUE: Axial computed tomography images of the abdomen and pelvis without intravenous contrast. Sagittal and coronal reformatted images were created and reviewed. This CT exam was performed usi ng one or more of the following dose reduction techniques: automated exposure control, adjustment o f the mA and/or kV according to patient size, and/or use of iterative reconstruction technique. COMPARISON: No relevant prior studies available. FINDINGS: LUNG BASES: Unremarkable. No mass. No consolidation. ABDOMEN: LIVER: Homogeneous without focal mass. GALLBLADDER AND BILE DUCTS: No calcified stones. No ductal dilation. PANCREAS: The pancreas is atrophic. No ductal dilation. SPLEEN: Unremarkable. ADRENALS: Unremarkable. No mass. KIDNEYS AND URETERS: Bilateral nonspecific perinephric stranding is noted. There is no hydroneph rosis or hydroureter of either kidney. No obstructing renal or ureteral calculus is seen. STOMACH AND BOWEL: The stomach is well distended with food contents. The small bowel is normal i n caliber. A moderate amount stool is present throughout colon. PELVIS: APPENDIX: The appendix is dilated measuring up to 1.1 cm. High density material is present withi n the appendix. Surrounding inflammatory stranding and fluid is noted. BLADDER: Unremarkable. No stones. REPRODUCTIVE: Unremarkable as visualized. ABDOMEN and PELVIS: INTRAPERITONEAL SPACE: Inflammatory stranding and fluid is noted along the right paracolic gutter extending into the pelvis. No free air. No significant fluid collection. BONES/JOINTS: Multilevel degenerative change of the spine is present. SOFT TISSUES: The soft tissues are normal. VASCULATURE: Aneurysmal dilatation of the infrarenal abdominal aorta measuring 5.0 x 5.0 cm is p resent. Minimal atherosclerosis of the vasculature is noted. LYMPH NODES: Unremarkable. No enlarged lymph nodes. IMPRESSION: 1. Findings suggest acute appendicitis. 2. 5.0 cm abdominal aortic aneurysm. Recommend follow-up every 6 months and vascular consultation. Reference: J Am Nadir Radiol 2013;10:789-794. Electronically signed by: Maricruz Orosco MD 12/21/2019 3:32 AM CDT Due to temporary technical issues with the PACS/Fluency reporting system, reports are being signed by the in house radiologist without review as a courtesy to ensure prompt reporting. The interpreting r adiologist is fully responsible for the content of the report.
--- NOTE | 2019-12-21 11:12 | OP ---
Date of Procedure: 12/21/2019 Surgeon: Amos Cohen MD Arcade Game Technician: Cheyenne Norris. Diagnoses: Acute appendicitis and abdominal aortic aneurysm. Postoperative Diagnosis: Acute suppurative appendicitis. Procedure: Laparoscopic appendectomy suppurative. Estimated Blood Loss: Less than 10 cc. Specimen: Appendix and culture intraabdominal suppurative discharge. Finding: Acute suppurative appendicitis. The patient has fibrin all over the right lower quadrant a nd pelvis. The patient stated that the pain has started early this today, although these findings on the abdomen showed that this progressed rapidly. There is purulent discharge from the appendix area. Anesthesia: General plus local. Indications: This is the case of a 59-year-old patient comes to us with acute abdominal pain, acute appendicitis. Fully explained the benefits, alternatives, and risks of laparoscopic possible open ap pendectomy, which include, but not limited to infection, bleeding, damage to adjacent structures, ane sthesia complication, SC, and even . He also understands this may not relieve any symptoms. He might need more than one surgical intervention. He understood, signed a consent. Description Of Procedure: The patient was emergently brought to the operating room, placed in supine position, anesthesia was done without complication. Abdominal area was prepped and draped in a ster ile fashion. Local anesthesia was applied followed by sharp incision of the skin in the infraumbilic al region. Incision was carried down to fascia which was opened under direct vision. Peritoneum was encountered, opened under direct vision. Vicryl #1 was placed inside the fascia. Don trocar was carefully introduced. Pneumoperitoneum was obtained. Immediately, we noticed a large inflammatory process in the abdomen with fibrin present on the area of the pelvis and also abdominal area. So, we did profuse irrigation with several liters of fluid. After that, we went to the area of the appendi x. Previously, we had 2 more 5 mm trocars on the left lower quadrant and suprapubic under direct vis ualization. This allowed me to do the diagnostic laparoscopy. Once we had the irrigation done, we n oticed the base of the appendix and we created a window at the base of the appendix, transected that with the Endo-SHELBI 45 mm 3.5 and mesoappendix with the Endo-SHELBI 45 mm 2.5. No bowel leak, no bleeding . The appendix was removed from the abdominal cavity using an EndoCatch through the umbilical incisi on. The area was inspected once again. Profuse irrigation was done until clear. Due to these findi ngs, I proceeded to leave a CARMELINA drain #10 on the right lower quadrant and pelvis using one of the troc ar sites. This was secured in place with 3-0 nylon connected to suction. At that moment, I proceede d to remove the trocars under direct vision, deflated pneumoperitoneum, and closed the fascia with #1 Vicryl, irrigated the subcutaneous tissue, closed that with 3-0 chromic, and skin with henri. Spo nge count and instrument counts correct. The patient tolerated the procedure well. The patient was sent to Recovery in stable condition. This patient will remain on IV antibiotics, bowel rest, and al so he was encouraged once again the importance of colonoscopy in the near future. ADELE/MARY Voice ID: [id number] Report ID: [id number]
[2019-12-21] MEDS: METRONIDAZOLE 500mg IVPB 500 MG/100 ML BAG IV SCH ×2 (11:46→17:12)
[2019-12-22] MEDS: METRONIDAZOLE 500mg IVPB 500 MG/100 ML BAG IV SCH ×5 (00:09→23:09)
[2019-12-22] MEDS ORDERED: MORPHINE 2 MG/ML SYR IV PRN (00:25)
[2019-12-22] MEDS: MORPHINE 4 MG/ML SYR IV PRN ×5 (01:13→19:55)
[2019-12-22] MEDS: Levofloxacin 750mg IV 750 MG/150 ML BAG IV SCH (04:22)
[2019-12-22 06:26] LABS: Absolute Lymphocytes (CBC) 0.8 K/uL (0.7-4.9); Basophils % 0.2 % (0-1.3); MPV 9.3 fL (7.6-11.3); RBC Red Blood Cell Count 2.89 M/uL (4.33-5.43)
[2019-12-22] MEDS: BUSPIRONE HCL 5 MG TABLET PO SCH (19:56)
[2019-12-22 22:28] VITALS: O2SAT 95
[2019-12-23] MEDS: Levofloxacin 750mg IV 750 MG/150 ML BAG IV SCH (04:06)
[2019-12-23] MEDS: MORPHINE 4 MG/ML SYR IV PRN (04:16)
[2019-12-23] MEDS: METRONIDAZOLE 500mg IVPB 500 MG/100 ML BAG IV SCH ×2 (05:33→11:30)
[2019-12-23] MEDS ORDERED: DICLOFENAC SOD D.R. 75 MG TAB PO SCH (09:00)
[2019-12-23] MEDS ORDERED: CITALOPRAM 10 MG TABLET PO SCH (09:00)
[2019-12-23] MEDS ORDERED: TAMSULOSIN 0.4 MG SR CAP PO SCH (09:00)
[2019-12-23] MEDS: BUSPIRONE HCL 5 MG TABLET PO SCH (10:59)
--- NOTE | 2019-12-23 13:16 | DS ---
Diagnoses: Acute suppurative appendicitis, peritonitis. History Of Present Illness: This is the case of a 59-year-old patient who comes to us with acute abd ominal pain, acute peritonitis, diagnosed with acute suppurative appendicitis, done uneventfully. Th e CARMELINA drain has to be left inside. The patient has been slowly advanced his diet and also here for IV antibiotics. The patient feels better today. No shortness of breath. No chest pain. CARMELINA clear. N o pus. Extremities, good capillary refill. Plan: The patient will be discharged to home. CARMELINA drain q.24 hours recording and then come back once to remove the CARMELINA drain. He was advised the importance of taking his antibiotics. At the same time, he was explained also the delicate situation with the narcotics. He has seen the pain management do ctor. We do understand that the only thing that works right now is a Vicodin. He does not want Tyle nol #3. He does not want Ultram. He does not want Motrin and for him to be moving around and ambula ting around, hydrocodone is the one to do it. Still, he understand he is coming from a difficult chad e with narcotics. He does not want to be any other way. I am going to write a limited amount just b ecause it is justifiable at this moment, but he was fully explained very clear that any more narcotic s will be coming directly from his pain management doctor. He understands that. He was advised the importance of being careful with that too. ADELE/MARY Voice ID: [id number] Report ID: [id number]
[2019-12-23 13:34] VITALS: BP 122/66; TEMP 97.4
== END 2019-12-23 14:00 | disposition home or self-care (01) | DRG 340 ==
LOC: ER 02:00 → ERHOLD 04:04 → 2ND 10:59
PROVIDERS: ADMIT Surgery; ATTEND Surgery
PROC: 0W9G40Z Drainage of Peritoneal Cavity with Drainage Device, Percutaneous Endoscopic Approach (ICD-10-PCS; 2019-12-21)
PROC: 0DTJ4ZZ Resection of Appendix, Percutaneous Endoscopic Approach (ICD-10-PCS; principal; 2019-12-21 11:00)
DX: K35.33 Acute appendicitis with perforation, localized peritonitis, and gangrene, with abscess (principal); I71.4 Abdominal aortic aneurysm, without rupture; Z71.6 Tobacco abuse counseling; Z11.59 Encounter for screening for other viral diseases
CPT/HCPCS: 36415; 74176; 76377; 80048; 80076; 81003; 83690; 85025; 87070; 87075; 87077; 87185; 87186; 87205; 88304; 96361; 96365; 96366; 96375; 97116; 97161; 97530; 99285; J0330; J1100; J1170; J2175; J2250; J2270; J2405; J2550; J2704; J2710; J3010; J7030; J7120; J7799; U0002

== ENCOUNTER 2021-02-13 06:48 | Day surgery (SDC) | payer OTHER, SELFPAY ==
--- NOTE | 2021-02-08 15:46 | RAD REPORT ---
EXAM DESCRIPTION: Emilie Riddle And Dasha (2 Views)02/08/2021 3:24 pm CLINICAL HISTORY: Preop for cardiac catheterization. COMPARISON: 2019 FINDINGS: 4 centimeter cystic mass right upper lobe appears without significant change. Additional 1 4 millimeter right upper lobe nodule appears unchanged. The left lung appears clear of acute infiltrate. The heart is normal size IMPRESSION: No acute abnormalities displayed
[2021-02-08 16:02] LABS: Potassium 4.1 mmol/L (3.5-5.1)
[2021-02-08 16:04] LABS: Absolute Lymphocytes (CBC) 1.6 K/uL (0.7-4.9); Basophils % 0.8 % (0-1.3); Hematocrit 32.8 % (39.6-49.0); Lymphocytes % 25.3 % (15.3-44.8); MPV 8.1 fL (7.6-11.3); RBC Red Blood Cell Count 3.52 M/uL (4.33-5.43)
[2021-02-08 16:12] LABS: Protime INR 0.96
--- NOTE | 2021-02-09 15:13 | EKG ---
Test Date: 2021-02-08 Test Time: 14:12:24 Manager Product Marketing: KRIS MEASUREMENT RESULTS: Intervals: Rate: 54 OK: 156 QRSD: 98 QT: 412 QTc: 390 [place]: P: -11 OK: 156 QRS: 6 T: 40 INTERPRETIVE STATEMENTS: Sinus bradycardia Otherwise normal ECG Compared to ECG 02/08/2021 14:11:55 No significant changes Electronically Signed On 02-09-21 15:10:59 CDT by Ramesh Gautam
--- NOTE | 2021-02-09 15:14 | EKG ---
Test Date: 2021-02-08 Test Time: 14:11:55 Business Process Manager: KRIS MEASUREMENT RESULTS: Intervals: Rate: 53 LA: 158 QRSD: 92 QT: 404 QTc: 379 [place]: P: 13 LA: 158 QRS: 11 T: 41 INTERPRETIVE STATEMENTS: Sinus bradycardia Otherwise normal ECG Compared to ECG 01/21/2018 11:23:22 No significant changes Electronically Signed On 02-09-21 15:11:00 CDT by Ramesh Gautam
[2021-02-13] MEDS ORDERED: HEPA 1000U/500MLS 2,000 UNIT/1,000 ML BAG IV ONE (07:07)
[2021-02-13] MEDS ORDERED: MIDAZOLAM HCL 2 MG/2 ML INJ ONE (07:08)
[2021-02-13] MEDS ORDERED: ATROPINE SULF 1 MG/10 ML SYR IV ONE (07:08)
[2021-02-13] MEDS ORDERED: FENTANYL CITR 100 MCG/2 ML ONE (07:08)
[2021-02-13] MEDS ORDERED: NA CHLORIDE 0.9% 500 ML ONE (07:13)
[2021-02-13 08:23] VITALS: TEMP 98.1
--- NOTE | 2021-02-13 08:46 | OP ---
Date of Procedure: 02/13/2021 Surgeon: Ramesh Gautam MD Supply Assistant: Mr. Cody Crooks. The patient will go home after 2 hours of bedrest. StarClose was used to close the groin. The patient admitted as an outpatient on 02/13/2021 to the scientific laboratory supervisor for an abdominal angiogram. Indication: Abdominal aortic aneurysm. Procedure In Detail: The patient was prepped and draped in the routine sterile fashion. He received Versed and fentanyl for sedation. A 6-[place] sheath introduced in the right common femoral artery s uccessfully. A Wholey wire was used to advance a pigtail catheter above the renals in the abdominal aorta. Abdominal angiogram with runoff showed a rather large abdominal aortic aneurysm just before t he iliac bifurcation. The renals were normal. QCA measurement is pending. 6-[place] sheath catheter s were used. No complications. Blood Loss: 5 mL. Postoperative Diagnosis: Large abdominal aortic aneurysm. Plan: For endograft. I will send him to [facility] for that. He will have a CD with him. I will have a CD with me as well. Anesthesia: Total conscious sedation was 45 minutes. NB/MODL Voice ID: [id number] Report ID: [id number]
[2021-02-13 09:24] VITALS: BP 126/74; O2SAT 97
== END 2021-02-13 09:51 | disposition home or self-care (01) ==
LOC: CCL 06:48
DX: I71.4 Abdominal aortic aneurysm, without rupture (principal); G62.9 Polyneuropathy, unspecified; R09.89 Other specified symptoms and signs involving the circulatory and respiratory systems; N40.0 Benign prostatic hyperplasia without lower urinary tract symptoms; Z88.6 Allergy status to analgesic agent; Z20.822 Contact with and (suspected) exposure to COVID-19
CPT/HCPCS: 93005 ×2; 85025; 80048; 36415; 85610; 85730; 71046; 36200; 75625; U0003; C1893; J2250; J3010; J7040; J1644

== ENCOUNTER 2021-06-27 07:28 | Day surgery (SDC) | payer OTHER ==
[2021-06-27] MEDS ORDERED: Ringers Lactate 1,000 ML IV ONE (07:56)
[2021-06-27] MEDS ORDERED: CEFAZOLIN/NS 1gm 1 GM/50 ML BAG ONE (07:56)
[2021-06-27 08:09] LABS: Absolute Lymphocytes (CBC) 1.4 K/uL (0.7-4.9); Hematocrit 29.1 % (39.6-49.0); Lymphocytes % 28.1 % (15.3-44.8); MPV 8.6 fL (7.6-11.3); RBC Red Blood Cell Count 3.16 M/uL (4.33-5.43)
[2021-06-27 08:16] LABS: Potassium 4.2 mmol/L (3.5-5.1)
[2021-06-27] MEDS ORDERED: ACETAMINOPHEN 500 MG TAB ONE (08:47)
[2021-06-27] MEDS ORDERED: propofoL 200 MG/20 ML VIAL IV ONE (09:06)
[2021-06-27] MEDS ORDERED: LIDOCAINE 2% MPF 5 ML VIAL ONE (09:08)
[2021-06-27] MEDS ORDERED: FENTANYL CITR 100 MCG/2 ML ONE (09:08)
[2021-06-27] MEDS ORDERED: ONDANSETRON 4 MG/2 ML VIAL ONE (09:09)
[2021-06-27] MEDS ORDERED: MIDAZOLAM HCL 2 MG/2 ML INJ ONE (09:09)
[2021-06-27 10:54] VITALS: O2SAT 100
[2021-06-27 11:17] VITALS: TEMP 97.5
--- NOTE | 2021-06-27 11:30 | OP ---
Date of Procedure: 06/27/2021 Surgeon: Jorge L Elias MD [employer]er: JUANCHO Suarez. Preoperative Diagnosis: Back mass x2. Postoperative Diagnosis: Back mass x2. Procedures: 1.Wide excision, right upper back mass, 5 x 2 cm with layered closure. 2.Wide excision, lower midline back mass, 5 x 2 cm with layered closure. Estimated Blood Loss: Minimal. Specimen: Back mass x2, likely sebaceous cyst. One was inflamed, the lower one. Findings: As above. Anesthesia: General. Complications: None. Disposition: The patient tolerated the procedure in stable condition and taken to Recovery in good g eneral condition. Procedure In Detail: The patient was brought to the OR and placed in supine position. General anest hesia begun. The patient was placed in the right lateral position, prepped and draped in the usual s terile fashion. Marcaine 0.5% was infiltrated locally. A 15-blade was used to make two 5 x 2 cm inc isions clean. Cyst was excised first in the right upper back. Subcutaneous tissue divided in entire cyst and its contents, wall, excised down through the deep subcutaneous tissue and sent to Pathology after being appropriately labeled. Wound irrigated. Bleeding controlled with cautery. Flaps creat ed. A 2-0 chromic used for subcutaneous tissue and 3-0 nylon used to close skin. Then, in the lower midline, same procedure occurred except this one had open wound in the middle with minimal discharge and same procedure occurred 5 x 2 cm, and then the wound was loosely approximated with 2-0 chromic a nd interrupted 3-0 nylon to allow for drainage. Sterile dressing applied. The patient was awakened and taken to Recovery in good general condition Discharge Note: The patient will go to Day Surgery and home when stable. Disposition: Home. Condition: Stable. Discharge Instructions: Resume home medications and diet. Activity as tolerated. The patient has p ain medicines and antibiotics consisting of Ultracet and clindamycin from the office. Remove outer d ressing in 2 days. Shower. Keep wound clean and dry. Dry gauze to wound daily. Follow up in [facility] in 2 weeks. Call for appointment. CLARENCE/MARY Voice ID: [id number] Report ID: [id number]
[2021-06-27 12:17] VITALS: BP 137/66
== END 2021-06-27 12:12 | disposition home or self-care (01) ==
LOC: OR 07:28
PROVIDERS: ATTEND Surgery
PROC: 0JB70ZZ Excision of Back Subcutaneous Tissue and Fascia, Open Approach (ICD-10-PCS; 2021-06-27)
PROC: 0JB70ZZ Excision of Back Subcutaneous Tissue and Fascia, Open Approach (ICD-10-PCS; principal; 2021-06-27 10:00)
DX: L72.0 Epidermal cyst (principal); Z20.822 Contact with and (suspected) exposure to COVID-19
CPT/HCPCS: 85025; 80048; 36415; 88304; 11406 ×2; U0003; J2704; J2250; J3010; J0690; J7120; J2405

== ENCOUNTER 2021-12-04 06:50 | Day surgery (SDC) | payer OTHER ==
[2021-12-04 07:34] LABS: Absolute Lymphocytes (CBC) 1.6 K/uL (0.7-4.9); Hematocrit 27.6 % (39.6-49.0); Lymphocytes % 29.4 % (15.3-44.8); MCV 90.4 fL (80-100); MPV 8.3 fL (7.6-11.3); RBC Red Blood Cell Count 3.05 M/uL (4.33-5.43)
[2021-12-04] MEDS ORDERED: NA CHLORIDE 0.9% 500 ML ONE (07:34)
[2021-12-04 07:37] LABS: Protime INR 1.05
[2021-12-04 07:59] LABS: Blood Morphology Comment NOT SEEN (NOT SEEN); Platelet Estimate ADEQ
[2021-12-04] MEDS ORDERED: FLUMAZENIL 0.1 MG/ML (5 mL VIAL) IV ONE (08:00)
[2021-12-04] MEDS ORDERED: NALOXONE 0.4 MG/ML VIAL ONE (08:00)
[2021-12-04] MEDS ORDERED: FENTANYL CITR 100 MCG/2 ML ONE (08:00)
[2021-12-04] MEDS ORDERED: MIDAZOLAM HCL 2 MG/2 ML INJ ONE (08:00)
[2021-12-04 08:23] VITALS: BMI 22.3
[2021-12-04 10:26] VITALS: TEMP 98
[2021-12-04 10:30] VITALS: BP 104/51; O2SAT 97
--- NOTE | 2021-12-04 10:34 | RAD REPORT ---
EXAM DESCRIPTION: CT - Bone Biopsy Deep - 12/04/2021 9:40 am CLINICAL HISTORY: bone marrow bx COMPARISON: No comparisons FINDINGS: Preoperative diagnosis: Anemia Post operative diagnosis: Same Conscious Sedation: 3 milligram Versed, 50 microgram fentanyl. 30 minutes of [id number] time. Patient was continuously monitored by nursing staff. Contrast used: NONE Estimated blood loss: less than 5 mL Specimens: 1 11 gauge core, approximately 15 mL aspirate The patient was placed prone on the table and the right flank area was prepped and draped in the usua l sterile fashion. 1% lidocaine was infiltrated into the subcutaneous tissues for local anesthesia. U nder computed tomographic guidance, a gauge introducer was advanced into the lesion. Subsequently, a 11 gauge needle was advanced into the left iliac bone. Marrow was aspirated and a core sample was ob tained. Postprocedure imaging demonstrated no complications. Samples were given to pathology for analysis. Th e patient tolerated the procedure without immediate complication and transferred to the recovery room in stable condition. IMPRESSION: Technically successful CT-guided bone marrow aspiration and core biopsy under conscious sedation. All CT scans are performed using dose optimization technique as appropriate and may include automated exposure control or mA/KV adjustment according to patient size.
== END 2021-12-04 10:53 | disposition home or self-care (01) ==
LOC: DS 06:50
PROVIDERS: ATTEND Internal Medicine Hematology & Oncology
DX: C94.6 Myelodysplastic disease, not elsewhere classified (principal); D63.8 Anemia in other chronic diseases classified elsewhere
CPT/HCPCS: 85025; 36415; 88313; 85610; 85044; 88305; 88311; 85730; 20225; J2310; J2250; J3010; J7040